=== PATIENT | female | born 1985 | race Caucasian/White ===

== ENCOUNTER 2022-09-19 14:17 | Emergency (ER) | payer BC | END 2022-09-19 14:54 | disposition home or self-care (01) | LOC: MADERS 14:17 | DX: K04.7 Periapical abscess without sinus (principal); K02.9 Dental caries, unspecified; K03.2 Erosion of teeth; R59.0 Localized enlarged lymph nodes; E66.9 Obesity, unspecified | CPT/HCPCS: 99283 ==